=== PATIENT | male | born 1950 | race Caucasian/White ===

== ENCOUNTER 2018-05-08 06:55 | Day surgery (SDC) | payer MEDICARE ==
[~2018-05-08] VITALS: Ht 180.3 cm; Wt 91.6 kg
[~2018-05-08 06:55] MED LIST: AMOXICILLIN500 MG PO; ASPIR 8181 MG PO; LISINOPRIL-HCT1 EACH PO; MULTIVITAMINS1 EAC8 PO; NORCO 5-325 TA1 EACH PO; VITAMIN C1000 MG PO; XALATAN2.5 ML OU; ZOFRAN ODT4 MG SL
--- NOTE | 2018-05-08 09:09 | NUR ---
05/08/18 0909 Sheets,Vannesa 9837 PT ARRIVED TO PACU ON RA AND DROWSY TALKING TO RN, PT REPORTS THE NEED TO VOID, PT EDUCATION GIVEN ON MEDICATION IN BLADDER AND TRUNING PLAN. PT DENIES PAIN AND NAUSEA. PT REPORT THAT HIS FEET ARE NUMB AND UNABLE TO MOVE THEM. EDUCATION GIVEN ON SPINAL, SPINAL LEVEL L1.
--- NOTE | 2018-05-08 09:34 | NUR ---
ICED WATER GIVEN. CALL LIGHT W/IN REACH. DR BLEDSOE IN SPEAKING WITH PATIENT AND FAMILY.
--- NOTE | 2018-05-08 09:58 | NUR ---
LE 0935: PATIENT TURNS TO HIS BELLY WITH ASSIST FROM THIS RN POSITIONING LEGS. PATIENT TOLERATES THAT WELL. 0955: PATIENT TURNS TO HIS LEFT SIDE WITH ASSIST FROM THIS RN POSITIONING LEGS. PATIENT TOLERATES THAT WELL.
--- NOTE | 2018-05-08 10:39 | NUR ---
LE 1020: PT'S NIETO CATHETER IS UNPLUGGED AND BLADDER IS DRAINED FOR 325ML'S OF CLEAR REDDISH URINE. THE NIETO BALLOON HAS 13CC'S OF NS REMOVED. THE NIETO IS REMOVED, THERE IS SANGUINOUS DRAINAGE FROM THE PENIS NOTED. PT IS EDUCATED THAT SOME DRAINAGE WILL BE NORMAL. A BRET'S IS PUT UNDER THE PT. PT IS ALSO EDUCATED THAT IT WOULD BE BEST IF HE COULD WAIT LONG TOLERATED BEFORE GOING TO THE BATHROOM FOR A VOIDING TRAIL. PT REPORTS THAT HE HAS FEELING IN HIS LEGS AGAIN AND IS ABLE TO WIGGLE HIS TOES. CALL LIGHT IS WITHIN REACH. IS AT THE BEDSIDE, SHE IS LEAVING TO TAKE CARE OF THE DOG AND TAKE RX TO THE PHARMACY AND WILL RETURN IN APPROXIMATELY AN HOUR. WILL CONTINUE TO MONITOR PT.
--- NOTE | 2018-05-08 11:35 | NUR ---
PT INDICATES THAT HE WOULD LIKE TO GET UP AND TRY TO USE THE RESTROOM.
--- NOTE | 2018-05-08 11:48 | NUR ---
PT IS ASSISTED UP OOB WITH STANDBY ASSIST BY 2 RN'S. HE IS STABLE ON HIS FEET, DENIES ANY LIGHTHEADEDNESS, DIZZINESS, OR NAUSEA. HE IS UNABLE TO VOID MORE THAN 10CC'S OF BLOODY URINE. HE WALKS BACK TO HIS ROOM AND FINISHES HIS WATER AND STATES THAT HE WOULD LIKE TO TRY AGAIN. HE IS GIVEN MORE WATER. WILL CONTINUE TO MONITOR.
--- NOTE | 2018-05-08 11:52 | NUR ---
PT IS ABLE TO VOID APPROXIMATELY 25CC'S OF BLOODY URINE HIS 2ND TRIP TO THE BATHROOM. HE IS ENCOURAGED TO WALK TO THE DEPARTMENT HALLS TO HELP GET THINGS FLOWING.
--- NOTE | 2018-05-08 12:26 | NUR ---
PT DENIES ANY PAIN OR DISCOMFORT AT THIS TIME. HE IS TRYING REALLY HARD TO URINATE A QS AMOUNT. HE IS ENCOURAGED TO HOLD IT LONG POSSIBLE BEFORE TRYING AGAIN. HE IS TOLD THAT THERE IS NO HURRY TO GET HIM OUT OF HERE, THAT THERE IS TIME. BUT THE PT IS REALLY WANTING TO GO HOME. WILL CONTINUE TO MONITOR.
--- NOTE | 2018-05-08 13:04 | OR ---
[facility] [address] [facility] [place] [address] Signed DATE OF OPERATION: 05/08/2018 SURGEON: Reji Bledsoe MD PREOPERATIVE DIAGNOSES: 1. Painless gross hematuria. 2. A 2 cm bladder mass detected on CAT scan. POSTOPERATIVE DIAGNOSES: 1. Painless gross hematuria. 2. A 2 cm bladder mass detected on CT scan. NAMES OF PROCEDURES: 1. Diagnostic cystoscopy. 2. Transurethral resection of bladder tumor-medium. 3. Intravesical instillation of mitomycin. 4. Urethral dilation using Preble sounds. ANESTHESIA: Spinal anesthetic with sedation. ESTIMATED BLOOD LOSS: 5 mL. COMPLICATIONS: None. SPECIMENS: 1. Fragments of bladder mass sent to pathology for evaluation. 2. Fragments of the base of the bladder mass sent to pathology for evaluation. DRAINS: A 22-Bhutanese Beltran catheter capped and taped to the patient's abdomen. INDICATIONS FOR PROCEDURE: Mr. Agrawal is a very pleasant 67-year-old gentleman who recently presented to my clinic with a recent history of 2-3 episodes of painless gross hematuria. He began his gross hematuria workup and in doing so, he underwent a contrasted CT scan, which revealed a 2 cm mass located on the left lateral wall of the patient's bladder. In lieu of undergoing diagnostic cystoscopy, I brought the patient back to discuss the results of Electronically Signed By: REJI BLEDSOE MD 05/08/18 1304 PATIENT NAME: ROBERTO CARLOS AGRAWAL [facility] [place] [facility] [place] DATE OF : 48 REPORT #: [id number] PHYSICIAN: REJI BLEDSOE MD PCP: AGUILA SOTO DO REPORT IS CONFIDENTIAL AND NOT TO BE RELEASED WITHOUT AUTHORIZATION [facility] [address] [place], [place] [address] Signed the CAT scan and made recommendation at that time for the patient to undergo transurethral resection of the bladder tumor. After a discussion of the risks and benefits of the procedure, the patient elected to undergo diagnostic cystoscopy with TURBT, medium, along with intravesical instillation of mitomycin. OPERATIVE FINDINGS: 1. On cystoscopy, there was no evidence of any suspicious masses or lesions other than the obvious 2 cm bladder mass located on the left lateral wall of bladder. The bilateral ureteral orifices are in their normal anatomic location. There is no evidence of any bladder stones or other debris or bladder wall trabeculation. 2. The patient's 2 cm bladder mass was resected in a stepwise fashion from the left lateral wall of the bladder without difficulty. Two separate specimens were obtained, one from the bladder mass is a hole, and the other specimen was obtained from the base of the tumor. 3. A total of 40 mg in 20 mL of mitomycin was then infused into the patient's bladder at the end of the procedure via a 22-Bhutanese two-way Beltran catheter. The catheter was then capped and then taped to his abdomen. He will now began the formal chemotherapy process or he will change sides q.20 minutes for a total of 80 minutes. At which time, the chemotherapy will be drained from his bladder and the catheter will be removed. 4. The patient's urethra was passively dilated using Preble sounds from 18-Bhutanese to 28-Bhutanese without difficulty. DESCRIPTION OF PROCEDURE: After informed consent obtained, the patient was taken back to the operating room. He was transferred from the [facility] to the operating room table, where spinal anesthesia was induced. The patient was then sedated and then placed in the dorsal lithotomy position and his genitalia were prepped and draped in a standard sterile fashion. The patient's urethra was then dilated using Preble sounds from 18-Bhutanese to 28-Bhutanese without difficulty. The 26-Bhutanese sheath was then passed into the patient's bladder using a visual obturator. I then inserted the resectoscope and performed a thorough cystoscopy. I visualized the mass located on the left lateral wall of the bladder, measuring around 2 cm in size. The mass did not have any associated calcification or any other abnormal appearance. Overall, it appeared papillary in nature. I then resected the mass using a bipolar loop without difficulty. Any bleeding that I encountered along the way was cauterized easily with the bipolar loop. Once I had resected the most of the visible tumor, the fragments of tumor were irrigated from his bladder and placed in a specimen cup. I then initiated resection of the base of the bladder tumor and the hopes of getting fragments of detrusor muscle for pathologic evaluation. These fragments were sent in a separate specimen cup to pathology for evaluation. The tumor base was then cauterized using the bipolar loop without difficulty to obtain hemostasis. Once adequate hemostasis was obtained, the patient's bladder was then irrigated thoroughly with the tumor one more time to be sure there were no remaining fragments within the Electronically Signed By: REJI BLEDSOE MD 05/08/18 1304 PATIENT NAME: ROBERTO CARLOS AGRAWAL OPERATIVE REPORT DATE OF : 48 REPORT #: [id number] PHYSICIAN: REJI BLEDSOE MD PCP: AGUILA SOTO DO REPORT IS CONFIDENTIAL AND NOT TO BE RELEASED WITHOUT AUTHORIZATION [address] [address] Signed bladder. The resectoscope was then removed and a 22-Bhutanese two-way Beltran catheter was inserted into the patient's bladder. Approximately 15 mL of water was infused into the balloon of the Beltran catheter. The catheter was then drained completely of the saline. A syringe was then used to instill the mitomycin into the patient's bladder using indwelling Beltran catheter. The catheter was then capped and then taped to the patient's abdomen. The procedure was then terminated. The patient tolerated the procedure well without any complication. He will now be transferred to the postanesthesia care unit in stable condition. DISPOSITION: I discussed the details of today's procedure with the patient and his family and answered all of his questions. His catheter will be removed and he will begin a voiding trial as soon as he finishes his intravesical mitomycin chemotherapy. He understands he must void on his own prior to discharge. He will be sent home today with [place] 5/325 #20 as needed for pain along with Ditropan as needed for bladder spasms. He was also given a prescription for Levaquin 500 p.o. daily for a total of 7 days. I told him, I will contact him with the results of the pathology. Otherwise, he will return to clinic in 1 month for his first postoperative evaluation. MD RAMANDEEP Nassar/BERNIE /[id number] Copies: ~ Electronically Signed By: REJI BLEDSOE MD 05/08/18 1304 PATIENT NAME: ROBERTO CARLOS AGRAWAL [facility] REPORT DATE OF : 48 REPORT #: [id number] PHYSICIAN: REJI BLEDSOE MD PCP: AGUILA SOTO DO REPORT IS CONFIDENTIAL AND NOT TO BE RELEASED WITHOUT AUTHORIZATION
== END 2018-05-08 13:05 | disposition home or self-care (01) ==
LOC: DS 06:55 → OPS 06:55
PROVIDERS: Urology
PROC: 0TBB8ZZ Excision of Bladder, Via Natural or Artificial Opening Endoscopic (ICD-10-PCS; principal; 2018-05-08 08:15)
PROC: 3E0M705 Introduction of Other Antineoplastic into Peritoneal Cavity, Via Natural or Artificial Opening (ICD-10-PCS; 2018-05-08 08:15)
DX: C67.9 Malignant neoplasm of bladder, unspecified (principal); I10 Essential (primary) hypertension; F17.210 Nicotine dependence, cigarettes, uncomplicated; Z79.82 Long term (current) use of aspirin; Z79.899 Other long term (current) drug therapy
CPT/HCPCS: 00912; 88305; 88307; J0696; J2250; J2704; J3010; J7120; J9280

== ENCOUNTER 2020-10-14 12:12 | Emergency (ER) | payer MEDICARE, BC ==
[~2020-10-14] VITALS: Ht 177.8 cm; Wt 93.0 kg
[~2020-10-14 12:12] MED LIST changes: +FLOMAX0.4 MG PO; +LOPRESSOR HCT1 EAC1 PO
[2020-10-14] MEDS ORDERED: HYDROCODON-ACE1 EA10 PO (13:49)
[2020-10-14] MEDS ORDERED: ZOFRAN4 MG PO (13:49)
== END 2020-10-14 14:28 | disposition home or self-care (01) ==
LOC: ED 12:12
DX: N13.2 Hydronephrosis with renal and ureteral calculous obstruction (principal); Z85.828 Personal history of other malignant neoplasm of skin; Z85.51 Personal history of malignant neoplasm of bladder; F17.200 Nicotine dependence, unspecified, uncomplicated; Z79.899 Other long term (current) drug therapy
CPT/HCPCS: 74176; 80053; 81001; 83690; 85025; 96374; 99284-25; J1885; J7030

== ENCOUNTER 2024-11-04 13:58 | Emergency (ER) | payer MEDICARE, BC ==
[~2024-11-04] VITALS: Ht 177.8 cm; Wt 100.4 kg
[~2024-11-04 13:58] MED LIST changes: +AMLODIPINE BESYL5 MG PO; +DICLOFENAC SODI75 MG PO; +GABAPENTIN300 MG PO; +HYDROCODON-ACE1 EA10 PO; +METOPROLOL SUC100 MG PO; +OXYCODONE HCL5 MG PO; +SENNA LAX8.6 MG PO; +XARELTO10 MG PO; +ZOFRAN4 MG PO
[2024-11-04] MEDS ORDERED: KETOROLAC TROMETHAMINE 15 MG/ML VIAL IV ONE (14:15)
[2024-11-04] MEDS ORDERED: SODIUM CHLORIDE 0.9% 1,000 ML IV ONE (14:15)
[2024-11-04 14:25] LABS: BASOPHILS 0.6 % (0.2-1.2); EOSINOPHILS 2.4 % (0.8-7.0); LYMPHOCYTES 17.7 % (21.8-53.1); MCH 32.5 PG (25.7-32.2); MCHC 33.3 g/dL (32.3-36.5); MCV 97.5 fL (79.0-92.2); MONOCYTES 11.2 % (5.3-12.2); NEUTROPHILS 67.9 % (34.0-67.9); RBC 4.83 M/uL (4.63-6.08)
[2024-11-04 14:41] LABS: ALT (SGPT) 46.0 U/L (14-59); AST (SGOT) 23.0 U/L (15-37); GLOMERULAR FILTRATION RATE,EST 66.0 mL/min (>60); PROTEIN, TOTAL 7.4 g/dL (6.4-8.2); UREA NITROGEN 32.0 mg/dL (7-18)
[2024-11-04 15:25] LABS: BLOOD/HGB, URINE LARGE (Negative); KETONE, URINE NEGATIVE (Negative); LEUK ESTERASE, URINE NEGATIVE (negative); NITRITE, URINE NEGATIVE (negative)
[2024-11-04] MEDS ORDERED: HYDROCODONE BIT/ACETAMINOPHEN 5/325 MG 1 TAB HOME.PACK PO ONE (15:30)
[2024-11-04 15:31] LABS: EPITHELIAL CELLS, URINE SQUAMOUS 1+ /lpf (0-1+)
[2024-11-04 15:33] LABS: CASTS, URINE NONE SEEN \\lpf; CRYSTALS, URINE NONE SEEN (0-1+); REFLEX CULTURE, URINE No (No)
[2024-11-04 15:52] VITALS: BP 127/84
== END 2024-11-04 15:54 | disposition home or self-care (01) ==
LOC: ED 13:58
PROVIDERS: Emergency Medicine
DX: N13.2 Hydronephrosis with renal and ureteral calculous obstruction (principal); Z87.442 Personal history of urinary calculi; F17.200 Nicotine dependence, unspecified, uncomplicated; Z79.899 Other long term (current) drug therapy
CPT/HCPCS: 36415; 74176; 80053; 81001; 85025; 96374; 99284-25; A9270; J1885; J7030

== ENCOUNTER 2024-12-11 23:40 | Inpatient (IN) | payer MEDICARE, BC ==
[~2024-12-11] VITALS: Ht 177.8 cm; Wt 103.8 kg
[2024-12-12] VITALS (31 sets, daily range): BP systolic 85–124; BP diastolic 68–92
[2024-12-12 00:11] LABS: BASOPHILS 0.5 % (0.2-1.2); EOSINOPHILS 3.4 % (0.8-7.0); LYMPHOCYTES 30.4 % (21.8-53.1); MCH 33.3 PG (25.7-32.2); MCHC 33.9 g/dL (32.3-36.5); MCV 98.5 fL (79.0-92.2); MONOCYTES 11.0 % (5.3-12.2); NEUTROPHILS 54.5 % (34.0-67.9); RBC 4.53 M/uL (4.63-6.08)
[2024-12-12 00:14] LABS: INR 1.05 (0.80-1.30); PROTIME 13.3 Sec (11.2-14.2)
[2024-12-12] MEDS ORDERED: CALCIUM GLUCONATE 1,000 MG/10 ML VIAL IV ONE (00:15)
[2024-12-12] MEDS ORDERED: SODIUM CHLORIDE 0.9% 500 ML IV PRN ×2 (00:15→15:30)
[2024-12-12 00:23] LABS: CORONAVIRUS COVID-19 AG NEGATIVE (NEGATIVE)
[2024-12-12 00:26] LABS: ALT (SGPT) 203.0 U/L (14-59); AST (SGOT) 74.0 U/L (15-37); GLOMERULAR FILTRATION RATE,EST 52.0 mL/min (>60); PROTEIN, TOTAL 6.7 g/dL (6.4-8.2); UREA NITROGEN 58.0 mg/dL (7-18)
[2024-12-12] MEDS ORDERED: ACETAMINOPHEN 325 MG TAB PO PRN (02:15)
[2024-12-12] MEDS ORDERED: APIXABAN 5 MG TAB PO ONE (02:15)
--- NOTE | 2024-12-12 03:38 | NUR ---
PT ARRIVEDD ADDMITTED AND STARTED NS BOLUS DUE TO DECREASEDD BP. UNABLE TO START CARDDIZEM GTT DUE TO DECREASED BP. PT ON 2 L'S NC WITH A SPO2 97%. HEART RATE RUNNNING BETWEEN 120'S TO 130'S. BP LESS THAN 100SBP.
--- NOTE | 2024-12-12 04:03 | NUR ---
STARTED CARDIZEM GTT AT THIS TIME AT 2.5 THEN INCREASED TO 5MG/HR. FOR A HEART RATE OF 133'S. BP 102/73 (81) AFTER 500ML NS BOLUS. VS Q 15MINUTES.
--- NOTE | 2024-12-12 04:08 | NUR ---
STARTED CARDIZEM GTT AT 04:00 AFTER 500MLS BOLUS INFUSED. SBP 102/73 (81). HEART RATE 130'S DRIP RUNNING AT 5MG/HR AT THIS TIME.
[2024-12-12 05:25] LABS: BASOPHILS 0.8 % (0.2-1.2); EOSINOPHILS 2.6 % (0.8-7.0); LYMPHOCYTES 26.8 % (21.8-53.1); MCH 33.3 PG (25.7-32.2); MCHC 33.3 g/dL (32.3-36.5); MCV 99.8 fL (79.0-92.2); MONOCYTES 10.3 % (5.3-12.2); NEUTROPHILS 59.2 % (34.0-67.9); RBC 4.09 M/uL (4.63-6.08)
[2024-12-12 05:38] LABS: ALT (SGPT) 186.0 U/L (14-59); AST (SGOT) 61.0 U/L (15-37); GLOMERULAR FILTRATION RATE,EST 58.0 mL/min (>60); PROTEIN, TOTAL 6.1 g/dL (6.4-8.2); UREA NITROGEN 53.0 mg/dL (7-18)
[2024-12-12] MEDS ORDERED: METOPROLOL TARTRATE 5 MG/5 ML VIAL ONE (06:34)
--- NOTE | 2024-12-12 06:43 | NUR ---
DR CABAN AT BEDSIDE LOPRESSOR 5MG IVP GIVEN TO SEE IF HR WOULD COME DOWN. NOT RESULTS. CARDIZEM GTT AT 10MG/HR
[2024-12-12] MEDS ORDERED: METOPROLOL TARTRATE 5 MG/5 ML VIAL IV ONE (06:45)
--- NOTE | 2024-12-12 06:53 | NUR ---
VS Q 15 MINS SEE PAPER IN HARD CHART.
[2024-12-12] MEDS ORDERED: DIGOXIN 500 MCG/2 ML AMP IV ONE (07:00)
--- NOTE | 2024-12-12 07:04 | NUR ---
DIGOXIN 500MCG GIVEN AT THIS TIME. DR CABAN AT THE BEDSIDE. ALL QUESTIONS ANSWERED.
--- NOTE | 2024-12-12 08:06 | NUR ---
pt denies pain or sx, hr 125-130. call light in reach, breakfast to pt.
[2024-12-12] MEDS ORDERED: APIXABAN 5 MG TAB PO SCH ×2 (09:00→21:45)
--- NOTE | 2024-12-12 09:50 | NUR ---
call to chauncey in clinic for cardiac medical records. pt resting. call light in reach- hr 138.
--- NOTE | 2024-12-12 10:35 | NUR ---
increase cardizem to [address] segovia who is watching the monitor at this time in dept. pt denies any sob or pain, watching tv in bed with call light in reach. dr bazzi vo to charge manager emily to change drip to amiodorone drip no loading dose.
[2024-12-12] MEDS ORDERED: AMIODARONE/DEXTROSE 200 ML IV ONE ×2 (10:45→16:36)
--- NOTE | 2024-12-12 10:52 | NUR ---
beginning titration off of dilt and beginning amiodarone. dilt titrated down to 10mg/hr
--- NOTE | 2024-12-12 11:16 | NUR ---
CALL TO DR CABAN - UPDATE ON VITALS - AMIODORONE FUSING - HR 135, PT DENIES NEEDS. [facility] RECORD EF 60% FROM [address] CABAN. THIS RN ORDERED AND CALLED XRAY FOR NEW ECHO.
--- NOTE | 2024-12-12 11:21 | NUR ---
PT NOT AVAILABLE FOR VISIT. PROVIDED PRAYER.
--- NOTE | 2024-12-12 11:41 | NUR ---
PRINTED EDUCATION GIVEN AND REVIEWEDD WITH PT ON AFIB.
--- NOTE | 2024-12-12 12:18 | NUR ---
stopped cardizem drip hr 138 and pt on amiodorone drip - tollerated lunch 100% denies needs watching tv.
--- NOTE | 2024-12-12 13:07 | NUR ---
DR CABAN REQUESTED THAT DILT BE RESTARTED ALONG WITH THE AMIODARONE. RESTARTED AT 5.
--- NOTE | 2024-12-12 13:39 | NUR ---
PATIENT ALERT IN BED. STATES HE LIVES WITH SPOUSE IN SINGLE LEVEL HOUSE. HAS A SINGLE STEP TO GET INSIDE. STATES HE DOES NOT USE DME BUT HAS 2 WALKERS, WHEELCHAIR AND SHOWER CHAIR AVAILABLE DUE TO 'S PREVIOUS SURGERIES. STATES HE DRIVES AT [employer]. HE HAS NO FINANCIAL HARDSHIP. THEY ARE ABLE TO AFFORD UTILITIES, FOOD AND MEDICATIONS WITHOUT DIFFICULTY. STATES HE WAS NOT PLANNING ON BEING IN THE HOSPITAL HE HAD THING ON HIS AGENDA THAT HE NEEDED TO TAKE CARE OF. HE IS RESTLESS AND LAUGHS NERVOUSLY MULTIPLE TIMES DURING CONVERSTAION. QUESTIONS REGARDING HEARTRATE ANSWERED. PLANS TO RETURN HOME WHEN MEDICALLY READY.
--- NOTE | 2024-12-12 14:04 | NUR ---
UR CLINICAL REVIEW: 2 MN FOR VERSALUS-PER CIVIL STRUCTURAL DESIGNER MEET INPT CRITERIA FOR PE/AFIB WITH RVR WITH NEED FOR DILTIAZEM DRIP MEDICARE INPT 12/12/24 @ 1403 ORDER MATCHES REG NO AUTH REQUIRED PER MEDICARE GUIDELINES DISCHARGE TO HOME WHEN STABLE
--- NOTE | 2024-12-12 14:17 | NUR ---
DILT DRIP AT 15 MG/HR. DR CABAN AT BEDSIDE FOR EKG - PT DENIES SX. HR IS 135-140. PT RESTING. TO ROOM.
--- NOTE | 2024-12-12 15:09 | NUR ---
dr segovia in room with pt and , hr 129, 2 iv drips via pump see emar. printed education to pt on eliquis and a fib.
--- NOTE | 2024-12-12 15:13 | NUR ---
500 ml bolus started per v/o dr segovia.
--- NOTE | 2024-12-12 16:02 | EKG ---
[facility] [address] [facility] [place] [address] Signed Atrial fibrillation with rapid ventricular response Left axis deviation Incomplete right bundle branch block ST \T\ T wave abnormality, consider anterior ischemia Abnormal ECG When compared with ECG of 07-APR-2021 09:14, Atrial fibrillation has replaced Sinus rhythm Vent. rate has increased BY 79 BPM Incomplete right bundle branch block is now present Confirmed by JASWINDER CABAN MD ([id number]) on 12/12/2024 4:02:37 PM Electronically Signed By: JASWINDER CABAN 12/12/24 1602 PATIENT NAME: ROBERTO CARLOS AGRAWAL [facility] [place] Electrocardiogram DATE OF : 48 PHYSICIAN: JASWINDER CABAN REPORT #: [id number] REPORT IS CONFIDENTIAL AND NOT TO BE RELEASED WITHOUT AUTHORIZATION
--- NOTE | 2024-12-12 16:17 | NUR ---
dr segovia at bedside with pt, review vitals and meds - no changes. hr 140, bp 112/93. call light in reach.
--- NOTE | 2024-12-12 16:44 | NUR ---
HR 129 - NEW BAG OF AMIODARONE SCANNED AND CHECKED WITH JOSELITO IN PHARMACY.
--- NOTE | 2024-12-12 17:51 | NUR ---
medications reconciled
--- NOTE | 2024-12-12 19:40 | NUR ---
PATIENT RESTING IN BED. DENIES NEEDS AT THIS TIME. PATIENT AMIODARONE AND DILT GGT INFUSING PER MEDICATION FLOWSHEET, DOUBLE VERIFIED BY GEO MCCLURE. IV SITE INFUSING WNL. NO FURTHER NEEDS. CALL LIGHT IN REACH.
--- NOTE | 2024-12-12 20:06 | NUR ---
ROBERTO CARLOS STATED THAT HE HAD SMOKED FOR OVER 50 YEARS, BUT NO LONGER SMOKES. HE DOES NOT USE HOME OXYGEN, NIV, OR HOME RESPIRATORY MEDICATIONS.
[2024-12-12] MEDS ORDERED: ALBUTEROL SULFATE 0.083% 3 ML VIAL INH PRN (20:15)
--- NOTE | 2024-12-12 21:05 | NUR ---
PATIENT RESTING IN BED. DENIES SOB OR PAIN. PATIENT HAS NO CURRENT NEEDS AT THIS TIME. ASSESSMENT COMPLETE. CALL LIGHT IN REACH.
--- NOTE | 2024-12-12 21:45 | NUR ---
PHONE CALL TO DR CABAN REGARDING MEDICATION ELIQUIS 10MG PO. ASKED IF HE WANTED TO CONTIOUE THIS MEDICATION DUE TO IT DROPED OFF DUE TO THE ED DOCTOR ORERED IT WHEN PT WAS ADMITTED. DR CABNA WANTS THIS MEDICATION CONTIOUED 10MG BID. ORDERED ENTERED.
--- NOTE | 2024-12-12 22:30 | NUR ---
PATIENT OXYGEN SAT MID 80s s ON 2L NC. PATIENT O2 SAT INCREASED TO 4L NC. RT NOTIFIED.
--- NOTE | 2024-12-12 22:43 | NUR ---
ROBERTO CARLOS (AKA: BERNARD) WAS PLACED ON A SALTER HFNC OFF THE WALL IN ORDER TO MAINTAIN SPO2. HE IS CURRENTLY ON 5L.
--- NOTE | 2024-12-12 23:31 | NUR ---
INCREASED HIGH FLOW O2 TO 10'S LITERS VIA NC AT THIS TIME. SPO2 88 TO 90%. PT STATES HECTOR HE HAS NOT SLEPT WELL IN THE PAST FEW DAYS.
[2024-12-13] VITALS (32 sets, daily range): BP systolic 105–148; BP diastolic 52–131
--- NOTE | 2024-12-13 00:02 | NUR ---
PATIENT RESTING IN BED. DENIES SOB OR PAIN. ASSESSMENT COMPLETE. PATIENT ON 10L HIGH FLOW NC AT THIS TIME. PATIENT HAS NO FURTHER NEEDS. CALL LIGHT IN REACH.
--- NOTE | 2024-12-13 02:20 | NUR ---
PATIENT RESTING IN BED. RESPIRATIONS EVEN AND UNLABORED. DENIES NEEDS AT THIS TIME. CALL LIGHT IN REACH.
--- NOTE | 2024-12-13 02:51 | NUR ---
PT'S SPO2 DECREASED TO 84 %. PT WAS FOUND TO HAVE OXY MASK AND HIGH FLOW O2 OFF. rE APPLIED BOTH AND PT STATES "IT'S A BIT MUCH WITH ALL OF THIS ON". ONCE ALL BACK IN PLACE PT SPO2 INCREASED TO 94%.
--- NOTE | 2024-12-13 03:48 | NUR ---
NEW BAG IV MEDICATION INFUSING, DOUBLE VERIFIED BY SHAWN MCCLURE. PATIENT RESTING IN BED WITH EYES CLOSED. RESPIRATIONS EVEN AND UNLABORED. CALL LIGHT IN REACH.
[2024-12-13] MEDS ORDERED: AMIODARONE HCL 180 MG in SODIUM CHLORIDE 0.9% 96.4 ML IV ONE (04:36)
--- NOTE | 2024-12-13 05:00 | NUR ---
PATIENT RESTING IN BED. PATIENT REPOSITIONED IN BED. ASSESSMENT COMPLETE. FRESH COFFEE PROVIDED. PATIENT STATES THAT HE IS FEELING MORE SOB THEN NORMAL, BUT DENIES CHEST PAIN. PATIENT IS ON 5L HIGH FLOW NC AT THIS TIME. PATIENT DENIES FURTHER NEEDS. CALL LIGHT IN REACH.
[2024-12-13 05:25] LABS: BASOPHILS 0.6 % (0.2-1.2); EOSINOPHILS 3.1 % (0.8-7.0); LYMPHOCYTES 17.4 % (21.8-53.1); MCH 33.0 PG (25.7-32.2); MCHC 33.5 g/dL (32.3-36.5); MCV 98.5 fL (79.0-92.2); MONOCYTES 11.8 % (5.3-12.2); NEUTROPHILS 66.8 % (34.0-67.9); RBC 4.09 M/uL (4.63-6.08)
[2024-12-13 05:44] LABS: ALT (SGPT) 166.0 U/L (14-59); AST (SGOT) 41.0 U/L (15-37); GLOMERULAR FILTRATION RATE,EST 77.0 mL/min (>60); PROTEIN, TOTAL 6.4 g/dL (6.4-8.2); UREA NITROGEN 34.0 mg/dL (7-18)
--- NOTE | 2024-12-13 05:53 | NUR ---
PT AWAKE SITTING UP IN BED WATCHING TV AT THIS TIME. GAVE PT FRESH CUP OF COFFEE.
--- NOTE | 2024-12-13 06:19 | NUR ---
DR CABAN INTO SEE PT ASK FORECLOSURE HOME INSPECTOR TO INCREASE DILT TO 20MG/HR AT THIS TIME. HEART RATE WAS 130 AND CURRENTLY VARIES FROM 1TEENS TO THE 130'S. BP HOLDING AT 110/87 (96).
--- NOTE | 2024-12-13 06:46 | NUR ---
VITALS HAVE BEEN OBTAINED Q15 MINS THIS SHIFT, SEE PAPER IN CHART.
--- NOTE | 2024-12-13 07:30 | NUR ---
report from Ruslan, pt sets off bed alarm - somewhat confused when RN enters room - pt states he forgot where he was and wants to get up to chair. rn assisted pt to stand - unsteady - line managment and pt pivot trsf to chair. repositioned pt with lines and fresh linen, bed linen changed - pt given warm wash cloth and he washes face- o2 5L hfnc sats 95%, pt sob with exertion but denies pain. reports thats what he needed to be up in chair. call light in reach. no edema noted. pt comfortable in ch with tv per his report. breakfast to pt. iv fusing with cardizem at 20 and amiodorone drip both in left arm iv x2 wnl.
[2024-12-13] MEDS ORDERED: AMIODARONE HCL 200 MG TAB PO SCH ×3 (09:00→21:00)
--- NOTE | 2024-12-13 09:45 | NUR ---
INTO SEE PATIENT. PATIENT TO GO HOME WITH WHEN MEDICALLY CLEARED FOR DISCHARGE. NO CM NEEDS AT THIS TIME.
--- NOTE | 2024-12-13 10:25 | EKG ---
[facility] [address] [facility] [place] [facility] [place] [address] Signed Atrial flutter with variable AV block Incomplete right bundle branch block Right ventricular hypertrophy with repolarization abnormality Lateral infarct , age undetermined Inferior infarct , age undetermined Abnormal ECG When compared with ECG of 11-DEC-2024 23:47, Significant changes have occurred Confirmed by JASWINDER CABAN MD ([id number]) on 12/13/2024 10:25:16 AM Electronically Signed By: JASWINDER CABAN 12/13/24 1025 PATIENT NAME: ROBERTO CARLOS AGRAWAL [facility] [place]cardiogram DATE OF : 48 PHYSICIAN: JASWINDER CABAN REPORT #: [id number] REPORT IS CONFIDENTIAL AND NOT TO BE RELEASED WITHOUT AUTHORIZATION
--- NOTE | 2024-12-13 11:43 | NUR ---
pt in chair - no distress - sob with exertion- rn asked pt to stand sats 90% 5l HFNC, hr 125-130 continues. call light in reach - all tele leads replaced, new o2 prob. pt denies needs.
--- NOTE | 2024-12-13 13:50 | NUR ---
pt call light answered - pt found in bed, he moved self from chair to bed with out using his call light and is sob and found holding his iv in his hand completly pulled out. new iv to r ac and left ac site covered with pressure. pt in bed with bed alarm and call light and educated that the need to call before he moves is for line assistance and safety. pt verbalizes understanding. watching tv hr 133 and cardizem drip fusing on pump.
--- NOTE | 2024-12-13 14:12 | NUR ---
PT AND IN ROOM ASKING QUESTIONS ABOUT OXYGEN AND BLOOD CLOTS - REVIEWED EDUCATION THAT WAS PRINTED. PT IS SOB WITH EXERTION, PT VOID 300 ML OF URINE IN URINAL.
--- NOTE | 2024-12-13 14:37 | NUR ---
VISITED DURING SPIRITUAL CARE ROUNDS. PT SITTING UP IN CHAIR EATING LUNCH, CONVERSANT, APPEARED TO BE IN OVERALL GOOD SPIRITS, EXPRESSED DESIRE TO GO HOME. CONTRACT GRAPHIC DESIGNER PROVIDED SUPPORTIVE PRESENCE, HOSPITALITY, PRAYER, FACILITATED INTERACTION WITH THERAPY ANIMAL. PT EXPRESSED GRATITUDE.
--- NOTE | 2024-12-13 14:45 | NUR ---
DR CABAN HERE REVIEW VITALS AND PT STATUS WITH THIS RN, AWARE OF SOB AND EXERTION- PULLING OUT IV/CONFUSED. DR ORDER NEW CT SCAN OF CHEST TO F/U PE/SOB WITH INCREASE OXYGEN TODAY.
--- NOTE | 2024-12-13 15:20 | NUR ---
1515 pt hr converted to SR HR 70-75, strip marked. pt denies needs. call light in reach.
[2024-12-13] MEDS ORDERED: DIGOXIN 250 MCG TAB PO SCH (15:35)
--- NOTE | 2024-12-13 15:38 | NUR ---
call to dr ayon to notify of pt conversion to sr, hr 75 and has been last 20 min. will be right over to assess pt and review recent orders.
--- NOTE | 2024-12-13 19:22 | NUR ---
discussed with charge aide and review vitals/tele - increase cardizem back to 10 on pump see flow sheet. pt denies needs, watching tv. call light in reach.
--- NOTE | 2024-12-13 19:47 | NUR ---
call to dr ayon to notify of rate change and cardizem at 20 on drip. he is aware and will come in.
--- NOTE | 2024-12-13 19:54 | NUR ---
PATIENT RESTING IN BED WITH EYES CLOSED. RESPIRATIONS EVEN AND UNLABORED. NO CURRENT NEEDS. CALL LIGHT IN REACH. BED ALARM ON.
[2024-12-13] MEDS ORDERED: MAGNESIUM SULFATE 2 GM/50 ML BAG IV ONE (20:15)
--- NOTE | 2024-12-13 20:39 | NUR ---
PATIENT RESTING IN BED. SCHEDULED MEDICATION ADMINISTERED. ASSESSMENT COMPLETE. BOTH IVs FLUSH WNL. PATIENT DENIES SOB OR CHEST PAIN. PATIENT EDUCATED TO CALL IS HE NEEDS ANYTHING. BED ALARM ON FOR SAFETY. PATIENT HAS NO FURTHER NEEDS AT THIS TIME. CALL LIGHT IN REACH.
--- NOTE | 2024-12-13 22:39 | NUR ---
PATIENT CALLED TO "SEE IF EVERYTHING WAS OKAY". PATIENT THOUGHT HE SAW OR SMELLED SMOKE. PATIENT REASSURED. PATIENT IS ORIENTED TO SELF AND SURROUNDINGS. PATIENT APPEARS SOB AND IS PATTING HIS CHEST. PATIENT DENIED PAIN OR FEELING SOB, STATING "I WOULDN'T SAY ITS THOSE THING". PATIENT Sp02 >90% ON 4L OXYMASK. HR 120-140; AFIB. BP WNL. RT CALLED TO DISCUSS AND DECIDED TO TRY PRN NEB TREATMENT. PATIENT THEN BEGAN REPORTING CHEST PAIN AND WANTING TO GET OUT OF BED. CALLED; ORDERS FOR TROPONIN LABS AND EKG RECEIVED. MD TO SEE PATIENT.
[2024-12-13] MEDS ORDERED: NITROGLYCERIN 0.4 MG SUBL SL PRN (23:00)
[2024-12-13] MEDS ORDERED: METOPROLOL TARTRATE 5 MG/5 ML VIAL IV PRN (23:00)
[2024-12-13] MEDS ORDERED: MORPHINE SULFATE 4 MG/ML VIAL IV PRN (23:00)
[2024-12-13] MEDS ORDERED: LACTATED RINGER'S 500 ML IV SCH (23:15)
--- NOTE | 2024-12-13 23:50 | NUR ---
2236 - RT TO ROOM. MAREN RN AND MICHAEL RN TO ROOM. EKG OBTAINED BY KATHARINA YOUNG. LAB IN ROOM TO OBTAIN BLOOD. PATIENT REPORTING SEVERE CHEST PAIN AT THIS TIME AND IS SITTING AT THE EDGE OF BED. 2250 - MD RIDLEY IN ROOM. 2315 - PATIENT REPORTING 9/10 CHEST PAIN. PER MD ORDERS 1 TAB NITRO ADMINISTERED. BLOOD PRESSURE SET TO Q5 MIN. PRN PAIN MEDICATION ADMINISTERED. PATIENT STILL REPORTS 7/10 CHEST PAIN, 5 MINS AFTER ADMINISTERING NITRO. SECOND TAB NITRO ADMINISTERED PER MD ORDERS. BP STABLE. HR REAMIANS 130-150'S 2330 - PATIENT SITTING AT EDGE OF BED, STRETCH BOX TENDER, MD RIDLEY, MAREN RN AND MICHAEL RN IN ROOM. PATIENT STILL REPORTING CHEST PAIN. MD ORDER TO ADMINISTER MORPHINE, TITRATING TO MAX DOSE. PATIENT TITRATED TO 15L OXY MASK AT THIS TIME. 2340 - PATIENT OFF FLOOR TO CT WITH MAREN RN AND MICHAEL RN. 2355 - PATIENT BACK TO FLOOR FROM CT. PATIENT ON 15L OXY MASK. PATIENT RESTING IN BED. MD RIDLEY REMAINS ON FLOOR. PATIENT BED ALARM ON. PATIENT STATES THAT HIS PAIN IS GETTING BETTER. HR REAMAINS ELEVATED; 120-140'S. DILTIAZEM DRIP CONTINUES AT 20 MG/HR. IV SITE WNL.
[2024-12-14] VITALS (23 sets, daily range): BP systolic 88–145; BP diastolic 61–113
[2024-12-14] MEDS ORDERED: FUROSEMIDE 20 MG/2 ML VIAL IV ONE ×2 (00:45→06:45)
--- NOTE | 2024-12-14 01:11 | NUR ---
PATIENT RESTING IN BED. DENIES PAIN AT THIS TIME. PATIENT STILL ON 15 L OXYMASK AT THIS TIME. MEDICATION ADMINISTERED PER ORDER. PUREWICK PLACED AFTER PERICARE PROVIDED. PATIENT DENIES NEEDS. CALL LIGHT IN REACH. BED ALARM ON. PATIENT REPOSITIONED IN BED.
[2024-12-14] MEDS ORDERED: METOPROLOL TARTRATE 5 MG/5 ML VIAL IV SCH (02:00)
--- NOTE | 2024-12-14 02:15 | NUR ---
PATIENTS BED ALARM, ALARMING. THIS RN TO ROOM. PATIENT STATES HE WAS "TRYING TO GET OUT OF BED SO I COULD PEE". THIS RN HELPED PATIENT BACK TO BED. PATIENT REPORTS 5/10 PAIN NEAR HIS CHEST, PRN PAIN MEDICATION ADMINSITERED. SCHEDULED MEDICATION ADMINISTERED. PATIENT DENIES FURTHER NEEDS AND WAS EDUCATED TO CALL IF HE NEEDS ANYTHING. CALL LIGHT IN REACH. BED ALARM ON.
--- NOTE | 2024-12-14 03:41 | NUR ---
PATIENT RESTING IN BED. VSS. PATIENT O2 SAT 95% ON 15L OXYMASK. BED ALARM ON. CALL LIGHT IN REACH.
[2024-12-14 05:29] LABS: BASOPHILS 0.2 % (0.2-1.2); EOSINOPHILS 0.2 % (0.8-7.0); LYMPHOCYTES 5.2 % (21.8-53.1); MCH 33.0 PG (25.7-32.2); MCHC 33.4 g/dL (32.3-36.5); MCV 98.7 fL (79.0-92.2); MONOCYTES 13.0 % (5.3-12.2); NEUTROPHILS 81.0 % (34.0-67.9); RBC 3.79 M/uL (4.63-6.08)
--- NOTE | 2024-12-14 05:30 | NUR ---
PATIENT DIFFICULT TO WAKE UP FOR LAB DRAW. PATIENT ABLE TO WAKE UP AND STATRE HIS NAME AND BUT DOES NOT KNOW WHERE HE IS OR THE YEAR. MICHAEL MCCLURE, UPDATED MD RIDLEY VIA TELEPHONE. NEW ORDERS RECEIVED. VERIFIED USING REPEAT BACK METHOD.
[2024-12-14 05:47] LABS: ALT (SGPT) 121.0 U/L (14-59); AST (SGOT) 28.0 U/L (15-37); GLOMERULAR FILTRATION RATE,EST 70.0 mL/min (>60); PROTEIN, TOTAL 6.2 g/dL (6.4-8.2); UREA NITROGEN 23.0 mg/dL (7-18)
[2024-12-14 05:52] LABS: BASE EXCESS, BLOOD GAS 1.7 mmol/L (-2-2); HCO3, BLOOD GAS 27.6 mmol/L (22-26); O2 SATURATION, BLOOD GAS 94.0 % (95.0-100.0); PCO2, BLOOD GAS 49.1 mmHg (35-45); PH, BLOOD GAS 7.36 (7.35-7.45); PO2, BLOOD GAS 70 mmHg (80-100); TOTAL CO2, BLOOD GAS 29.1
[2024-12-14 05:53] LABS: OXYGEN RECEIVED, BLOOD GAS 15L
--- NOTE | 2024-12-14 06:43 | NUR ---
UPDATED ON PATIENT'S MENTAL STATUS AND LAB RESULTS.
--- NOTE | 2024-12-14 07:02 | NUR ---
PATIENT VS HAVE BEEN OBTAINED Q15 MIN DURING THIS SHIFT. VS PRINTED AND PLACED IN PATIENT CHART.
--- NOTE | 2024-12-14 08:00 | NUR ---
dr oden in room with this rn and pt, rn empties 300 ml or urine from male purewick canister on wall. advises dr that pt is not talking and acting the same as yesterday and rn is concerned as his swallow is difficult and he sputters trying to swallow. pt seems agitated, with garbled speech then clears for drs questions. he answers some incorrect orientation. pt does mini neuro exam with . and rn. moves all extremities, tounge is mid line, shrugs shoulders equal palms up, down, raises eye brows equal, smiles, swallow is still concerning to rn and pt denies wanting anything - his o2 sats are low and somewhat sob with talking. call light in reach - rn asks metal extrusion supervisor for sitter for bipap.
--- NOTE | 2024-12-14 08:06 | NUR ---
BED 10 l OXY MASK 94%, HR 149, ABD DISTENDED, BLE EDEMA PITTING IN FEET, PT SPEECH IS MORE GARBLED BUT PT REPORTS DRY MOUTH, PT REPORTS NO DRINKING AND LAST WAS 3 WEEKS AGO. MOUTH BREATHING WITH CRACKLES/WHEEZE IN LUNGS. BED ALARM ON. CALL LIGHT IN REACH.
--- NOTE | 2024-12-14 09:10 | NUR ---
PT AGREEABLE TO BIPAP, PLACED BY AKHIL YOUNG - 03/16 SETTINGS. PT HAS SITTER AND DOOR OPEN. PT IS TALKING AND SWALLOWING WITH DIFFICULTY BEFORE THIS SO RN REQUESTED SITTER AND DOOR OPEN ALL THE WAY. PT WITH HOB UP HAS FACE MASK ON, AND FALLS EASILY TO SLEEP. RESP 16, AND AFTER OBSERVING PT FOR SOME TIME HR GOES DOWN TO 114-130, O2 SATS 92. PT LOOKS MORE RELAXED AND EASILY AWAKENS TO STIMULI. ORAL CARE DONE BEFORE MASK PLACED BY THIS RN, PT KEEPS MOUTH OPEN AT ALL TIMES AND IS VERY DRY - REPORTS THAT HE CAN INHALE THROUGH HIS NOSE BUT NOT EXHALE- HE REPORTS THIS TO RN AND RT. CONTINUES TO MOUTH BREATH WITH BIPAP MASK ON AND FALLS BACK TO SLEEP. SITTER ABIDA AT SIDE.
[2024-12-14] MEDS ORDERED: IPRATROPIUM BROMIDE 2.5 ML VIAL INH ONE (09:15)
[2024-12-14] MEDS ORDERED: IPRATROPIUM BROMIDE 2.5 ML VIAL ONE (09:17)
[2024-12-14] MEDS ORDERED: METOPROLOL SUCCINATE 100 MG TABCR PO SCH (09:24)
[2024-12-14] MEDS ORDERED: TAMSULOSIN HCL 0.4 MG CAP PO SCH (09:25)
--- NOTE | 2024-12-14 10:00 | NUR ---
PT CONTINUES TO HAVE BIPAP ON AND HR IS 120-130 RESP RATE 14, SATS 93% AND PT RESTING WITH SITTER AT BEDSIDE. MALE PUREWICK TO WALL SUCTION AND DRAINING FEMI URINE AFTER LASIX.
--- NOTE | 2024-12-14 10:21 | NUR ---
DISCHARGE REVIEW: CONTINUES IN AFIB RVR, HEARTRATES REMAIN UP TO 150 WITH NEED FOR IV MED MANAGEMENT. CARDIAC MONITORING. IV DIURETICS, OXYGEN NOT USED AT BASELINE. PLAN TO RETURN TO HOME WHEN MEDICALLY READY. POTENTIAL NEED TO TRANSFER FOR CARDIOLOGY IF UNABLE TO IMPROVE HEARTRATE ADD: 12/15-12/16/24
--- NOTE | 2024-12-14 11:19 | NUR ---
INTO SEE PATIENT. PATIENT ON BIPAP AND PATIENT CYBER SECURITY. PATIENT SLEEPING. PRIMARY NURSE REQUEST PATIENT TO SLEEP.
--- NOTE | 2024-12-14 12:15 | NUR ---
pt was able to wear bipap until now, (3 hours) pt continues to have poor memory and speech that is changed from yesterday, more garbled and at times flight of words. pt does not know how he got here on admit, admits he is not sure what is happening, he previously could tell me about his er visit and health history yesterday. he is confused, yet sharp with some information. pt given ice chip - he is swallowing poorly and takes lots of encouragement to swallow liquid with a cough. clears well. oxygen on oxymask 10L sats 93%, voids using the male purewick. abd. distended.
--- NOTE | 2024-12-14 13:05 | NUR ---
rn and in room for assessment, hr continues in a fib hr 109, pt on 12l oxy mask - rn expresses concern for change in mental status. pt declines lunch.
--- NOTE | 2024-12-14 13:10 | NUR ---
pt has bipap off, discussing pt status, sleep apnea and altered mental status and then he is talking clear and matter a fact. dr concerned and asked rn to call code stroke to ct and mri. bs checked wnl.
--- NOTE | 2024-12-14 13:12 | NUR ---
RESPONDED TO STROKE TEAM ACTIVATION. PT NOT AVAILABLE FOR VISIT, NO FAMILY PRESENT. PROVIDED PRAYER.
[2024-12-14] MEDS ORDERED: LORazepam 2 MG/ML VIAL IV SCH (13:15)
[2024-12-14] MEDS ORDERED: LORazepam 2 MG/ML VIAL IV ONE (13:15)
--- NOTE | 2024-12-14 13:15 | NUR ---
MARKETING TECHNOLOGY SPECIALIST CHECKED BLOODSUGAR ON PATIENT. BLOODSUGAR WAS 124. KAMI CUEVAS AND KAMI GUARDADO NOTIFIED.
--- NOTE | 2024-12-14 13:15 | NUR ---
dr in room pt to ct scan followed by mri with this rn and dr - pt symptoms, slurred speech, altered mental status, and change in swallow. poor memory and acting very diffrent today then yesterday. pt to xray dept on oxygen via bed.
[2024-12-14] MEDS ORDERED: IPRATROPIUM BROMIDE 2.5 ML VIAL INH SCH (14:00)
--- NOTE | 2024-12-14 14:30 | NUR ---
in room with pt, , rn and rt for assessment and discussion. post xray - HR 104, bp 94/82 (88) pt getting neb tx right now. call light in reach.
[2024-12-14] MEDS ORDERED: LORazepam 2 MG/ML VIAL IV PRN (16:30)
--- NOTE | 2024-12-14 16:30 | NUR ---
pt is restless not wanting to wear bipap - rose grading supervisor susi in to assist pt, he is not cooperative and does not understand the benefit after he trys to explain. call to and 1mg iv ativan given to pt see emar - then pt is agreeable to wear bipap again. sitter at side and pt sleeps with mask on and mouth wide open at all times.
--- NOTE | 2024-12-14 18:54 | NUR ---
pt restless with bipap rn removed it and placed on hfnc - pt garbled speech, inappropriate speech, pt barked at this rn when i handed him a wash cloth to wet his mouth and wash face. this rn - notified special agent in charge audelia to come in and help assess this pt as yesterday his mental status and behavior was normal and much diffrent. pt does not know where he is, does not know day and or time, does not know the names of his 3 dogs readily - slowly he is able to recal them over a min -2. He is garbled, then clear speach - he is suspicious of oral care supplies given to him. this am this rn asked if he drank etoh - he reported not for a month or so - no I don't drink. this evening on the phone his said he drinks every weekend- so his last drink would likely be 5 days ago? She is not sure if he drinks more - they are retired and home together but she doesn't think so. at this time he is resting in the bed, hr 114, bp 103/73 and o2 95% on hfnc 10L. pt thinks we are in [place], and when asked how he got here he states well wouldnt you like to know!. He compensates and answers questions strange and open ended - such as above. warm blanket given and he says that feels pretty good, but when handed a tooth brush - he didn't know what it was or why i was giving it to him? pt continues to have bed alarm, call light and sitter with him. hob up high awake and watching tv. this rn reports to charge and that he is acting very diffrent from yesterday when he was independent up in chair eating meals and haveing normal conversations with this rn. today it is like he never saw me before - yesterday we had conversation and mutual aquantence after a few trys he was able to remember today but he had run around sentances and speech before he answered the correct name. he just is not the same as yesterday. rn to give report to pet sitter - and deng winchestergovernment operations consultant is here tomorrow so that is also one of the reasons I asked her in for mini neuro exam. considered ciwa - but pt reported that he does not drink.
--- NOTE | 2024-12-14 19:45 | NUR ---
SHIFT REPORT RECEIVED. PATIENT RESTING IN BED. HIGH FLOW NC IN PLACE. SITTER AT BEDSIDE. PATIENT IS RESTLESS AND CONFUSED. ORIENTED TO SELF BUT NOT SURROUNDINGS OR FOLLOWING INSTRUCTIONS. VS STABLE.
--- NOTE | 2024-12-14 20:15 | NUR ---
PATIENT PLACED ON CPAP BY RT. PATIENT WAS RESTLESS AND ATTEMPTING TO REMOVE MASK SEVERAL TIMES. AFTER SEVERAL ATTEMPTS BY PAROLE BOARD MEMBER TO REASSURE THE PATIENT HE IS NOW RESTING WITH EYES CLOSED. VS STABLE.
--- NOTE | 2024-12-14 21:00 | NUR ---
DISCUSSED PATIENT'S MENTAL STATUS AND AGITATION WITH . PLAN MADE TO USE PRECEDEX TO MANAGE PATIENT AND ATTEMPT TO KEEP CPAP IN PLACE OVERNIGHT.
--- NOTE | 2024-12-14 22:00 | NUR ---
PATIENT AWAKE AND ATTEMPTING TO REMOVE THE MASK. PATIENT IS MORE AGITATED AND REMAINS CONFUSED ON WHERE HE IS AND WHY. CPAP REMOVED AND PLACED ON HIGH FLOW FOR PO MEDS. PATIENT TAKES MEDS AND SIPS OF WATER WITHOUT ISSUES. PATIENT IS ANGRY WITH STAFF AND SITUATION; REFUSING CPAP AT THIS TIME. ATTEMPTING TO REMOVE MONITOR AND IV SITES. PRN ATIVAN PROVIDED AT THIS TIME. AWAITING PRECEDEX APPROVAL BY [employer].
--- NOTE | 2024-12-14 22:30 | NUR ---
PATIENT MORE RESTFUL AT THIS TIME. AGREES TO WEAR CPAP FOR SHORT TERM. CPAP APPLIED AND ADJUSTED. PATIENT REQUIRED SEVERAL REMINDERS TO NOT REMOVE MASK. PRECEDEX STARTED AT LOW DOSE. IV SITE WNL. CARDIZEM INFUSING PER ORDER. TITRATED TO 1O MG/HR. HR 100-120; BP ADEQUATE. PATIENT HAS MALE PURE WIC IN PLACE; OUTPUT IS FEMI COLORED. 1:[address] FOR SAFETY[address]
--- NOTE | 2024-12-14 23:00 | NUR ---
PATIENT RESTING WITH EYES CLOSED. HOB AT 45 DEGREES. TOLERATING CPAP. VS STABLE. SITTER AT BEDSIDE.
[2024-12-15] VITALS (21 sets, daily range): BP systolic 93–122; BP diastolic 65–82
--- NOTE | 2024-12-15 | NUR ---
RASS -1; PATIENT APPEARS RESTFUL. TOLERATING CPAP. VS STABLE. HR 95-115; AFIB. SITTER AT BEDSIDE FOR SAFETY.
--- NOTE | 2024-12-15 01:31 | NUR ---
PATIENT REMAINS RESTFUL. OCCATIONALLY NEEDS REMINDED TO LEAVE CPAP IN PLACE. VS STABLE. SITTER AT BEDSIDE.
--- NOTE | 2024-12-15 03:30 | NUR ---
PATIENT RESTING IN BED. WAKES EASILY TO VOICE. RASS -1. VS STABLE. SITTER AT BEDSIDE.
--- NOTE | 2024-12-15 05:00 | NUR ---
PATIENT WAKES WHEN RN IN ROOM. CPAP REMOVED. PATIENT ABLE TO STATE HIS NAME. MOUTH IS DRY; OFFERED WATER. PATIENT UNABLE TO SUCK ON STRAW. OFFERED WATER WITH SPOON AND PATIENT HAD DIFFICULTY FIGURING OUT HOW TO SWALLOW. PATIENT EVENTUALLY DID SWALLOW AND DID NOT CHOKE OR COUGH. PATIENT UNSURE OR UNABLE TO ANSWER ANY QUESTIONS. CPAP BACK IN PLACE. VS STABLE.
[2024-12-15 05:17] LABS: BASOPHILS 0.6 % (0.2-1.2); EOSINOPHILS 1.2 % (0.8-7.0); LYMPHOCYTES 14.3 % (21.8-53.1); MCH 33.2 PG (25.7-32.2); MCHC 34.0 g/dL (32.3-36.5); MCV 97.6 fL (79.0-92.2); MONOCYTES 15.7 % (5.3-12.2); NEUTROPHILS 67.9 % (34.0-67.9); RBC 3.80 M/uL (4.63-6.08)
[2024-12-15 05:38] LABS: ALT (SGPT) 89.0 U/L (14-59); AST (SGOT) 22.0 U/L (15-37); GLOMERULAR FILTRATION RATE,EST 64.0 mL/min (>60); PROTEIN, TOTAL 6.1 g/dL (6.4-8.2); UREA NITROGEN 26.0 mg/dL (7-18)
--- NOTE | 2024-12-15 08:25 | NUR ---
REPORT RECEIVED FROM MICHAEL MCCLURE. PT IS RESTING IN BED WITH EYES CLOSED, RESP EVEN AND UNLABORED, RR 16, SPO2 95% ON 4L/HIGH FLOW CANNULA. PRECEDEX DRIP IS INFUSING AT 0.2MCG/KG/HR AND CARDIZEM DRIP IS INFUSING AT 10MG/HR.
[2024-12-15] MEDS ORDERED: FUROSEMIDE 20 MG/2 ML VIAL IV ONE (09:00)
--- NOTE | 2024-12-15 09:04 | NUR ---
DR RIDLEY IN TO SEE PT AND TALKE WITH AND SON.
--- NOTE | 2024-12-15 15:51 | NUR ---
PT AWAKE VISITING FAMILY. HR 100-110'S.
--- NOTE | 2024-12-15 18:50 | NUR ---
IN TO CHECK ON PT, RESTING HR IS NOW 110-120'S AFIB. FAMILY HAS BEEN AT BEDSIDE ALL AFTERNOON TALKING WITH PT, PT NOW LEAVING. PTS ATTENDS CHECKED, DOES HAVE SOME URINE LEAKAGE, HA CARE DONE SKIN LOOKS GOOD. PT STOOD WITH FWW, STEADY ON HIS FEET AND HR STEADY WELL. PT THEN BACK TO BED WITH BED ALARM ON.
--- NOTE | 2024-12-15 19:45 | NUR ---
SHIFT REPORT RECEIVED. PATIENT RESTING IN BED WATCHING TV. VS STABLE. CALL LIGHT IN REACH. BED ALARM ACTIVE.
--- NOTE | 2024-12-15 20:30 | NUR ---
PATIENT IS ALERT AND ORIENTED TO SELF AND SURROUNDINGS. DENIES GI UPSET OR PAIN. PATIENT TOLERATING 4L NC. LUNG SOUNDS ARE CLEAR. PATIENT IN A.FIB WITH RATE 110-130'S. IV SITE WNL; SL. PATIENT PROVIDED FRESH WATER. DENIES OTHER NEEDS. CALL LIGHT IN REACH. BED ALARM ON.
--- NOTE | 2024-12-15 22:19 | EKG ---
[facility] [address] [place] [address] Signed Atrial fibrillation with rapid ventricular response with premature ventricular or aberrantly conducted complexes Left axis deviation Incomplete right bundle branch block ST \T\ T wave abnormality, consider anterolateral ischemia Abnormal ECG When compared with ECG of 12-DEC-2024 14:04, Significant changes have occurred Confirmed by Rola Ridley MD () on 12/15/2024 10:19:09 PM Electronically Signed By: ROLA RIDLEY MD 12/15/24 2219 PATIENT NAME: ROBERTO CARLOS AGRAWAL Electrocardiogram DATE OF : 48 PHYSICIAN: ROLA RIDLEY MD REPORT #: [id number] REPORT IS CONFIDENTIAL AND NOT TO BE RELEASED WITHOUT AUTHORIZATION
--- NOTE | 2024-12-15 22:30 | NUR ---
DISCUSSED PATIENT'S HEART RATE WITH ; ORDERS PLACED TO ADD DIGOXIN.
[2024-12-15] MEDS ORDERED: DIGOXIN 125 MCG TAB PO ONE (22:45)
--- NOTE | 2024-12-15 23:04 | NUR ---
PATIENT PROVIDED MEDS. PATIENT WOKE EASILY AND FOLLOWS DIRECTIONS WELL. EXPLAINED MEDICATION AND HR CONCERN; PATIENT STATED "WHATEVER YOU SAY". LIGHTS DIMMED. CALL LIGHT IN REACH. BED ALARM ACTIVE.
[2024-12-16] VITALS (9 sets, daily range): BP systolic 99–122; BP diastolic 50–79
--- NOTE | 2024-12-16 00:45 | NUR ---
PATIENT APPEARS RESTFUL IN BED. EYES CLOSED. VS STABLE. HR 110-120'S AFIB CALL LIGHT IN REACH. BED ALARM ACTIVE.
--- NOTE | 2024-12-16 02:30 | NUR ---
PATIENT WOKE WHEN RN IN ROOM. REPORTS SLEEPING OFF AND ON BUT NOT BEING THAT TIRED. DENIED ANY NEEDS. VS STABLE. TOLERATING 4L NC. CALL LIGHT IN REACH. BED ALARM ACTIVE.
--- NOTE | 2024-12-16 04:00 | NUR ---
PATIENT WATCHING TV, RESTING IN BED. ORIENTED TO SELF AND SURROUNDINGS. PATIENT IS CALM AND APPROPRIATE. DENIED PAIN OR SOB. TOLERATING 3L NC. VS STABLE. PATIENT DENIED FURTHER NEEDS. CALL LIGHT IN REACH.
[2024-12-16 05:18] LABS: BASOPHILS 0.1 % (0.2-1.2); EOSINOPHILS 0 % (0.8-7.0); LYMPHOCYTES 3.5 % (21.8-53.1); MCH 33.1 PG (25.7-32.2); MCHC 35.0 g/dL (32.3-36.5); MCV 94.5 fL (79.0-92.2); MONOCYTES 5.0 % (5.3-12.2); NEUTROPHILS 91.0 % (34.0-67.9); RBC 3.84 M/uL (4.63-6.08)
[2024-12-16 05:31] LABS: ALT (SGPT) 79.0 U/L (14-59); AST (SGOT) 20.0 U/L (15-37); GLOMERULAR FILTRATION RATE,EST 61.0 mL/min (>60); PROTEIN, TOTAL 6.3 g/dL (6.4-8.2); UREA NITROGEN 34.0 mg/dL (7-18)
--- NOTE | 2024-12-16 06:21 | NUR ---
PATIENT SITTING UP IN BED WATCHING TV. PATIENT AAOX3. REQUESTING COFFEE. MALE EXTERNAL CATH REMOVED. AREA CLEANED. URNAL PROVIDED. PATIENT HAD 550 MLS OUT FOR THE SHIFT; CLEAR FEMI COLORED URINE. VS STABLE. HR 110-120 AFIB. ADEQUATE BP. PATIENT DENIED OTHER NEEDS. CALL LIGHT IN REACH. BED ALARM ACTIVE.
--- NOTE | 2024-12-16 07:30 | NUR ---
REPORT RECEIVED FROM MICHAEL MCCLURE. PT RESTING IN BED, AWAKE AND WATCHING TV, RESP EVEN AND UNLABORED, ON ROOM AIR WITH SPO2 91%.
--- NOTE | 2024-12-16 08:15 | NUR ---
IN TO DO AM ASSESSMENT AND MEDS. PT ALERT AND ORIENTED, ANSWERING QUESTIONS CORRECTLY THIS AM, IN AT BEDSIDE. PT IS EAGER TO GO HOME THIS AM, DISCUSSED PLAN OF CARE FOR THE DAY, INCLUDING GIVING CARDIAC MEDS AND CONTINUING TO WATCH HR. RESTING HR NOW 120'S AFIB. PT DOES REPORT FEELING A LITTLE MORE SOB THAN HIS BASELINE, AND DOES HAVE SOME INCREASED SOB WITH SITTING FORWARD IN BED FOR ASSESSMENT. LUNGS ARE DIM THROUGHOUT, WITH SCATTERED COARSE SOUNDS AND EX WHEEZE ON LEFT SIDE. PT DOES NOT WANT TO EAT BREAKFAST THIS MORNING, COFFEE PROVIDED.
[2024-12-16] MEDS ORDERED: predniSONE 20 MG TAB PO SCH (09:00)
[2024-12-16] MEDS ORDERED: POTASSIUM CHLORIDE 40 MEQ,LIDOCAINE HCL 1% 40 MG in DEXTROSE 5% 250 ML IV ONE (09:00)
[2024-12-16] MEDS ORDERED: DIGOXIN 125 MCG TAB PO SCH (09:00)
--- NOTE | 2024-12-16 09:05 | NUR ---
IN TO HANG POTASSIUM RIDER, NO NEEDS AT THIS TIME.
--- NOTE | 2024-12-16 09:49 | NUR ---
PATIENT WALKED WITH PT AND RT THIS AM. DURING WALK SpO2 LOWEST WAS 90%. RT TO CONTINUE TO MONITOR.
--- NOTE | 2024-12-16 09:59 | NUR ---
PT UP TO WALK WITH PHYSICAL THERAPY AND RT FOR ROOM AIR TRIAL.
--- NOTE | 2024-12-16 10:05 | NUR ---
PT NOW RESTING IN BED WATCHING TV, LEAVING. STATES HE WILL SIT UP IN CHAIR A LITTLE LATER, HR THIS MORNING HAS BEEN HIGH 140, MOSTLY IN THE 120'S. NOW RESTING HR IS 115-120. CALL LIGHT IN REACH.
[2024-12-16] MEDS ORDERED: METOPROLOL TARTRATE 25 MG TAB PO SCH (11:45)
[2024-12-16] MEDS ORDERED: FUROSEMIDE 40 MG TAB PO SCH (11:46)
--- NOTE | 2024-12-16 12:33 | NUR ---
LUNCH BROUGHT IN TO PT, ASSESSMENT DONE, PT DENEIS NEEDS AT THIS TIME.
--- NOTE | 2024-12-16 13:30 | NUR ---
PT RESTING IN BED, MULTIPLE FAMILY MEMBERS AT BEDSIDE. URINAL EMPTIED AND PLACED BACK NEXT TO PT. LUNCH TRAY CLEARED FROM ROOM, ATE 80%. CALL LIGHT IN REACH OF PT
--- NOTE | 2024-12-16 15:12 | NUR ---
PT AWAKE IN BED, RESTING HR 105-120'S. TALKING WITH VISITORS IN ROOM.
--- NOTE | 2024-12-16 17:30 | NUR ---
DINNER BROUGHT IN TO PT, HE HAS NO REQEUSTS AT THIS TIME.
--- NOTE | 2024-12-16 18:40 | NUR ---
PT AWAKE IN BED WATCHING TV, DENIES NEEDS, WASHING HIMSELF UP.
--- NOTE | 2024-12-16 19:30 | NUR ---
SHIFT REPORT RECEIVED. PATIENT RESTING IN BED WATCHING TV. DENIED ANY NEEDS. TOLERATING ROOM AIR. HR 110-120'S. CALL LIGHT IN REACH.
--- NOTE | 2024-12-16 20:30 | NUR ---
PATIENT UP TO THE BATHROOM. STAND BY ASSIST. PATIENT VOIDED AND RETURNED TO BED. APPEARS TO HAVE INCREASED WOB WITH ACTIVITY BUT DENIES FEELING SOB. Sp02 > 88% ON ROOM AIR. HR 120-130'S WITH ACTIVITY. PATIENT PROVIDED FRESH ICE WATER. CALL LIGHT IN REACH. BED ALARM ON.
--- NOTE | 2024-12-16 21:00 | NUR ---
PATIENT PROVIDED SCHEDULED MEDS PER ORDER. PATIENT READY FOR BED AND WILLING TO WEAR CPAP FOR NOW. VERIFIED PATIENT WAS ABLE TO REMOVE MASK INDEPENDENTLY THROUGHOUT TEACH BACK METHOD. PATIENT HAS UNDERSTANDING. LIGHTS DIMMED. CALL LIGHT IN REACH.
--- NOTE | 2024-12-16 22:00 | NUR ---
PATIENT UNABLE TO TOLERATE MASK. RT ATTEMPTED TO ADJUST TO INPROVE ABLITIY TO USE CPAP FOR THE NIGHT. PATIENT ATTEMPTED TO WEAR IT FOR 5-10 MINS AND THEN WAS DONE. PATIENT NOW ON ROOM AIR. CALL LIGHT IN REACH.
[2024-12-17] VITALS: BP 117/80
--- NOTE | 2024-12-17 00:33 | NUR ---
PATIENT PROVIDED SCHEDULED MEDS. PATIENT REPORTS NOT BEING VERY TIRED BUT HAS BEEN NAPPING OFF AND ON. TOLERATING ROOM AIR. HR CONTINUES TO BE 110-120'S AFIB. PATIENT DENIED ANY NEEDS OR CONCERNS. CALL LIGHT IN REACH.
--- NOTE | 2024-12-17 01:45 | NUR ---
PATIENT RESTING IN BED TRYING TO SLEEP. URNAL EMPTIED. PATIENT DENIED ANY NEEDS OR CONCERNS.
--- NOTE | 2024-12-17 04:14 | NUR ---
PATIENT RESTING IN BED WATCHING TV. DENIES ANY PAIN OR SOB. TOLERATING ROOM AIR. HR 100-120; AFIB. PATIENT DENIED ANY NEEDS. CALL LIGHT IN REACH.
[2024-12-17 05:22] LABS: BASOPHILS 0.1 % (0.2-1.2); EOSINOPHILS 0 % (0.8-7.0); LYMPHOCYTES 4.2 % (21.8-53.1); MCH 33.1 PG (25.7-32.2); MCHC 34.4 g/dL (32.3-36.5); MCV 96.2 fL (79.0-92.2); MONOCYTES 6.0 % (5.3-12.2); NEUTROPHILS 89.2 % (34.0-67.9); RBC 3.99 M/uL (4.63-6.08)
[2024-12-17 05:37] LABS: ALT (SGPT) 77.0 U/L (14-59); AST (SGOT) 24.0 U/L (15-37); GLOMERULAR FILTRATION RATE,EST 67.0 mL/min (>60); PROTEIN, TOTAL 6.4 g/dL (6.4-8.2); UREA NITROGEN 31.0 mg/dL (7-18)
[2024-12-17 06:00] VITALS: BP 114/78
--- NOTE | 2024-12-17 06:00 | NUR ---
SCHEDULED MEDS PROVIDED PER ORDER. PATIENT IS UP IN THE RECLINER HAVING COFFEE AND WATCHING TV. PATIENT INSTRUCTED NOT TO STAND FROM CHAIR OR AMBULATE WITHOUT CALLING. CALL LIGHT IN HAND. PATIENT VERBALIZED UNDERSTANDING. URNAL IN REACH.
--- NOTE | 2024-12-17 08:00 | NUR ---
REPORT RECEIVED FROM KAMI RODRIGUEZ. PT SITTING UP IN CHAIR, ARRIVED IN ROOM. STATES SHE SLEPT OK LAST NIGHT.
--- NOTE | 2024-12-17 10:11 | NUR ---
PLANS TO RETURN HOME WHEN MEDICALLY READY. NO KNOWN CM NEEDS.
[2024-12-17 10:27] VITALS: BP 123/80
--- NOTE | 2024-12-17 10:33 | NUR ---
PT SITTING UPRIGHT IN BED TALKING WITH . DENIES CONCERNS. ATE MOST OF BREAKFAST. GIVEN NEW URINAL. ANSWERED QUESTIONS REGARDING CARDIOVERSION. OT IN TO WORK WITH PT.
[2024-12-17 12:18] VITALS: BP 103/78
--- NOTE | 2024-12-17 12:22 | NUR ---
VISITED DURING SPIRITUAL CARE ROUNDS. PT SUPPORTED BY IN ROOM. BOTH IN OVERALL GOOD SPIRITS, NO IMMEDIATE NEEDS. TYPE COPYIST PROVIDED SUPPROTIVE PRESENCE, HOSPITALITY, PRAYER, FACILITATED INTERACTION WITH THERAPY ANIMAL. PT AND EXPRESSED GRATITUDE.
--- NOTE | 2024-12-17 13:01 | NUR ---
PT HAS VISITORS IN ROOM. CHATTING LOUDLY. HR REMAINS IN THE 120'S. COUGHING HAS SUBSIDED HOWEVER.
[2024-12-17] MEDS ORDERED: METOPROLOL TARTRATE 25 MG TAB PO ONE (13:30)
[2024-12-17] MEDS ORDERED: FUROSEMIDE 40 MG/4 ML VIAL IV SCH (14:00)
--- NOTE | 2024-12-17 14:59 | NUR ---
SPOKE WITH PT REGARDING PLAN TO ADJUST HIS MEDS AGAIN. ANSWERED QUESTIONS OF HIS AND WIFES. HE STATES HE HOPES TO GO HOME TOMORROW. FAMILY IN ROOM. URINAL IN REACH.
--- NOTE | 2024-12-17 16:12 | NUR ---
PT GETTING REPEAT ECHO.
--- NOTE | 2024-12-17 16:55 | NUR ---
PT GIVEN DINNER TRAY. EMPTIED URINAL FOR 1000ML LIGHT YELLOW URINE.
[2024-12-17] MEDS ORDERED: METOPROLOL TARTRATE 25 MG TAB PO SCH ×2 (17:45→19:30)
--- NOTE | 2024-12-17 19:22 | NUR ---
SPOKE WITH TELEPHARM SEVERAL TIMES REGARDING TITRATING DOSE OF METOPROLOL. SHOULD BE 37.5 NOW. THEN 6 HOURS FROM NOW 50MG.
--- NOTE | 2024-12-17 19:30 | NUR ---
handoff report received from KAMI newton. patient resting in bed watching TV. no acute distress noted. patient has call light in reach.
[2024-12-17 20:00] VITALS: BP 118/78
--- NOTE | 2024-12-17 21:00 | NUR ---
PATIENT AWAKENS FOR MEDICATION ADMINISTRATION. PATIENT CONFUSED, UNABLE TO STATE THE YEAR AND MONTH, LOCATION, AND SITUATION. PATIENT ONLY ORIENTED TO SELF. DR RIDLEY AT BEDSIDE TO ASSESS. PATIENT REMAINS IN AFIB, HEART RATE RANGING FROM 100-130'S. PATIENT ON ROOM AIR, TOLERATING WELL. BP STABLE. PATIENT DENIES ANY PAIN OR NAUSEA. PATIENT DENIES ANY NUMBNESS OR TINGLING. PATIENT ABLE TO FOLLOW COMMANDS. THIS RN REMAINS IN ROOM.
--- NOTE | 2024-12-17 21:40 | NUR ---
PATIENT LEFT UNIT WITH THIS RN AND RT FOR HEAD CT.
--- NOTE | 2024-12-17 21:56 | NUR ---
PATIENT BACK ON UNIT FROM CT. PATIENT TOLERATED WELL. NEW CHUCKS PAD AND BRIEF PLACE ON PATIENT. PATIENT ABLE TO TURN SELF IN BED. PATIENT REQUEST TV ON. THIS RN REMAINS AT BEDSIDE.
[2024-12-17 22:00] VITALS: BP 119/80
[2024-12-17] MEDS ORDERED: SENNOSIDES/DOCUSATE 1 EA TAB PO SCH (22:00)
--- NOTE | 2024-12-17 22:35 | NUR ---
PATIENT STATES HIS STOMACH FEELS MORE DISTENED THAN NORMAL. PATIENT ABD FIRM. PATIENT BT ACTIVE. MD AWARE. BOWL REGIMEN STARTED.
--- NOTE | 2024-12-17 23:15 | NUR ---
PATIENT REFUSES TO WEAR BIPAP AT THIS TIME. PATIENT LIGHTS DIMMED PER REQUEST. BED ALARM ON FOR PATIENT SAFETY, PATIENT REMAINS ON ROOM AIR, SPO2 94%. PATIENT REMAINS IN AFIB, HEART RATE RANGING FROM 110-130'S. PATIENT HAS CALL LIGHT IN REACH. BED IN LOW AND LOCKED POSITION.
[2024-12-18] VITALS (7 sets, daily range): BP systolic 96–119; BP diastolic 68–81
--- NOTE | 2024-12-18 01:08 | NUR ---
PATIENT RESTING IN BED WITH EYES CLOSED, RR 15. PATIENT REMAINS ON ROOM AIR, SPO2 91%. NO SIGNS OF ACUTE DISTRESS NOTED. PATIENT BED IN LOW AND LOCKED POSITION, BED ALARM ON. PATIENT HAS CALL LIGHT IN REACH.
--- NOTE | 2024-12-18 01:29 | NUR ---
PATIENT NOTED TO BE GETTING OUT OF BED. PATIENT STATES HE NEEDS TO STAND UP. PATIENT OUT OF BED, TAKES SOME STEPS WITH FWW. PATIENT REMAINS CONFUSED. PATIENT BACK TO BED. DENIES ANY FURTHER NEEDS AT THIS TIME. PATIENT REPOSITIONED. BED IN LOW AND LCOKED POSITION WITH BED ALARM ON. CALL LIGHT IN REACH.
[2024-12-18] MEDS ORDERED: METOPROLOL TARTRATE 50 MG TAB PO SCH (02:00)
--- NOTE | 2024-12-18 02:21 | NUR ---
PATIENTS SCHEDULED MEDICATION GIVEN PER ORDER. PATIENT DENIES ANY NEEDS. CALL LIGHT IN REACH. BED ALARM ON FOR SAFETY.
--- NOTE | 2024-12-18 04:15 | NUR ---
patient noted to desat as low as 86% on room air while asleep. patient placed on 2L oxymask, SPO2 93%. no further needs at this time. call light in reach.
[2024-12-18 05:26] LABS: BASOPHILS 0.2 % (0.2-1.2); EOSINOPHILS 0 % (0.8-7.0); LYMPHOCYTES 7.9 % (21.8-53.1); MCH 33.6 PG (25.7-32.2); MCHC 35.1 g/dL (32.3-36.5); MCV 95.7 fL (79.0-92.2); MONOCYTES 8.5 % (5.3-12.2); NEUTROPHILS 82.9 % (34.0-67.9); RBC 3.93 M/uL (4.63-6.08)
[2024-12-18 05:45] LABS: ALT (SGPT) 100.0 U/L (14-59); AST (SGOT) 38.0 U/L (15-37); GLOMERULAR FILTRATION RATE,EST 69.0 mL/min (>60); PROTEIN, TOTAL 6.0 g/dL (6.4-8.2); UREA NITROGEN 30.0 mg/dL (7-18)
--- NOTE | 2024-12-18 05:45 | NUR ---
patient request to get up to chair. patient ambulates to chair with fww and tolerates well. patient more clear this AM, although confused on where he is. patient seems to be irritated with being in hospital and is eager to get home. RT in room talking with patient. patient on room air, SPO2 94%. patient remains in AFIB, heart rate ranging from 110-130s. chair alarm on, patient has call light in reach and instructed to call this RN with any needs.
--- NOTE | 2024-12-18 06:45 | NUR ---
DR RIDLEY CALLED AND PROVIDED UPDATE ON PATIENT. NO NEW ORDERS AT THIS TIME.
[2024-12-18] MEDS ORDERED: METOPROLOL TARTRATE 100 MG TAB PO SCH (08:00)
[2024-12-18] MEDS ORDERED: METOPROLOL TARTRATE 100 MG TAB PO ONE (08:00)
[2024-12-18] MEDS ORDERED: METOPROLOL SUCCINATE 100 MG TABCR PO SCH (08:00)
[2024-12-18] MEDS ORDERED: POLYETHYLENE GLYCOL 3350 1 PACKET PO SCH (09:00)
--- NOTE | 2024-12-18 09:01 | NUR ---
DR. RIDLEY IN ROOM TO SEE PATIENT AT THIS TIME AND DISCUSSING PLAN OF CARE. PATIENT AGREEABLE TO TRANSFER FOR POTENTIAL CARDIOVERSION. PT IS CLEAR, A&o X4. ALL PO MEDS GIVEN THIS AM W/O DIFFICULTY. PT REPORTS FEELING WORSE THAN WHEN HE CAME IN, AND NOTICES MORE SWELLING IN HIS LEGS. PT ON ROOM AIR CURRENTLY. PT'S FREDRICK IN ROOM AND ALSO UP TO DATE ON PLAN OF CARE. PT REMAINS IN THE 130s AFIB WHILE THIS RN IN ROOM. WILL CONTINUE TO MONITOR.
--- NOTE | 2024-12-18 10:15 | NUR ---
Spoke with Joe and his . They are waiting for an accepting hospital for a cardioversion. They deny any needs.
--- NOTE | 2024-12-18 12:32 | NUR ---
PATIENT TRANSFERRED TO [facility] ROOM 7121 AT 1155 VIA EMS/[facility]. NEW IV ESTABLISHED BY EMS DUE TO PATIENT ACCIDENTALLY PULLING HIS IV SITE WHEN MOVING TO STRETCHER. PT REMAINS IN AFIB 130-140s BUT STABLE. REPORT CALLED TO KAMI GODOY AT [facility] AT [phone]. ALL PERSONAL BELONGINGS SENT WITH PATIENT AND PATIENT'S TO FIND HER OWN TRANSPORTATION TO [facility].
[2024-12-18] MEDS ORDERED: METOPROLOL TARTRATE 25 MG TAB PO SCH ×2 (19:00)
== END 2024-12-18 11:55 | disposition short-term general hospital (02) | DRG 175 ==
LOC: ED 23:40 → CCU 12-12 02:10
PROVIDERS: Family Medicine; ADMIT Internal Medicine; ATTEND Family Medicine
PROC: 5A09357 Assistance with Respiratory Ventilation, Less than 24 Consecutive Hours, Continuous Positive Airway Pressure (ICD-10-PCS; principal; 2024-12-14)
PROC: 4A133R1 Monitoring of Arterial Saturation, Peripheral, Percutaneous Approach (ICD-10-PCS; 2024-12-14)
DX: I26.99 Other pulmonary embolism without acute cor pulmonale (principal); J96.01 Acute respiratory failure with hypoxia; J81.1 Chronic pulmonary edema; I48.91 Unspecified atrial fibrillation; I10 Essential (primary) hypertension; H40.9 Unspecified glaucoma; N40.1 Benign prostatic hyperplasia with lower urinary tract symptoms; F17.200 Nicotine dependence, unspecified, uncomplicated; I95.9 Hypotension, unspecified; E87.70 Fluid overload, unspecified; R33.8 Other retention of urine; R41.0 Disorientation, unspecified; T46.2X5A Adverse effect of other antidysrhythmic drugs, initial encounter; Z85.828 Personal history of other malignant neoplasm of skin; Z85.51 Personal history of malignant neoplasm of bladder
CPT/HCPCS: 36415; 36600; 70450; 70496; 70498; 70551; 71045; 71260; 80053; 80162; 82803; 83735; 83880; 84484; 85025; 85379; 85610; 85730; 93005; 93010; 93306; 93308; 94640; 94660; 94667; 94668; 94761; 94799; 96374; 96375; 97116; 97162; 97165; 97530; 99285-25; J0282; J0612; J1160; J1938; J2060; J2270; J2405; J2919; J3475; J3480; J3490; J7040; J7060; J7121; J7512; P9612; Q9967

== ENCOUNTER 2025-01-05 08:53 | Emergency (ER) | payer MEDICARE, BC ==
[~2025-01-05] VITALS: Ht 177.8 cm; Wt 106.0 kg
--- OUTSIDE RECORDS SUMMARY | 2025-01-05 08:59 | XMS ---
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 - 2 Visits in 30 Days CARE PROVIDERS There are no care providers on record at this time. Ricki has no Care Guidelines for this patient. [facility] VISIT COUNT (12 MO.) [address] [facility] TOTAL 3 NOTE: Visits indicate total known visits. ED/[facility] VISIT TRACKING (12 MO.) 01/05/2025 08:53 [facility] [place] TYPE: Emergency COMPLAINT: - HEART ISSUES 12/11/2024 23:42 [facility] [place] TYPE: Emergency COMPLAINT: - SHORTNESS OF BREATH 11/04/2024 13:59 [facility] [place] TYPE: Emergency COMPLAINT: - RT SIDE FLANK PAIN DIAGNOSES: - Hydronephrosis with renal and ureteral calculous obstruction - Nicotine dependence, unspecified, uncomplicated - Other residential (current) drug therapy - Personal history of urinary calculi - Unspecified abdominal pain INPATIENT VISIT TRACKING (12 MO.) 12/18/2024 13:28 [facility] TYPE: Internal Medicine DIAGNOSES: - Other persistent atrial fibrillation - Pulmonary embolism - Refractory atrial fibrillation RVR 12/12/2024 02:10 [facility] [place] TYPE: Critical Care COMPLAINT: - PULMONARY EMBOLUS,AFIB WITH RVR DIAGNOSES: - Acute respiratory failure with hypoxia - Adverse effect of other antidysrhythmic drugs, initial encounter - Benign prostatic hyperplasia with lower urinary tract symptoms - Chronic pulmonary edema - Disorientation, unspecified - Essential (primary) hypertension - Fluid overload, unspecified - Hypotension, unspecified - Nicotine dependence, unspecified, uncomplicated - Other pulmonary embolism without acute cor pulmonale - Other retention of urine - Personal history of malignant neoplasm of bladder - Personal history of other malignant neoplasm of skin - Shortness of breath - Unspecified atrial fibrillation - Unspecified glaucoma [email or web address]
[2025-01-05 09:12] LABS: BASOPHILS 0.6 % (0.2-1.2); EOSINOPHILS 2.7 % (0.8-7.0); LYMPHOCYTES 18.1 % (21.8-53.1); MCH 33.3 PG (25.7-32.2); MCHC 33.3 g/dL (32.3-36.5); MCV 100.2 fL (79.0-92.2); MONOCYTES 11.2 % (5.3-12.2); NEUTROPHILS 66.9 % (34.0-67.9); RBC 4.56 M/uL (4.63-6.08)
[2025-01-05] MEDS ORDERED: ALBUTEROL/IPRATROPIUM 3 ML NEB INH PRN (09:15)
[2025-01-05] MEDS ORDERED: DIGOXIN125 MCG PO (09:21)
[2025-01-05] MEDS ORDERED: DILTIAZEM 24HR240 M1 PO (09:21)
[2025-01-05] MEDS ORDERED: ELIQUIS5 MG PO (09:21)
[2025-01-05] MEDS ORDERED: FUROSEMIDE 100 MG/10 ML VIAL IV ONE (09:30)
[2025-01-05 09:33] LABS: ALT (SGPT) 137.0 U/L (14-59); AST (SGOT) 31.0 U/L (15-37); GLOMERULAR FILTRATION RATE,EST 66.0 mL/min (>60); PROTEIN, TOTAL 6.5 g/dL (6.4-8.2); UREA NITROGEN 26.0 mg/dL (7-18)
[2025-01-05] MEDS ORDERED: METOPROLOL SUC100 MG PO (12:44)
[2025-01-05 13:21] VITALS: BP 108/80
--- NOTE | 2025-01-07 13:13 | EKG ---
[facility] [address] [facility] [place] [address] Signed Atrial fibrillation with rapid ventricular response Low voltage QRS Incomplete right bundle branch block ST \T\ T wave abnormality, consider anterior ischemia Abnormal ECG When compared with ECG of 05-JAN-2025 09:02, (Unconfirmed) No significant change was found Confirmed by David Kwong DO ([id number]) on 01/07/2025 1:13:21 PM Electronically Signed By: DAVID KWONG DO 01/07/25 1313 PATIENT NAME: ROBERTO CARLOS AGRAWAL DEJUAN Electrocardiogram DATE OF : 48 PHYSICIAN: DAVID KWONG DO REPORT #: [id number] REPORT IS CONFIDENTIAL AND NOT TO BE RELEASED WITHOUT AUTHORIZATION
--- NOTE | 2025-01-07 13:13 | EKG ---
[facility] [address] [facility] [place] [address] Signed Atrial fibrillation with rapid ventricular response Low voltage QRS Incomplete right bundle branch block ST \T\ T wave abnormality, consider anterior ischemia Abnormal ECG When compared with ECG of 13-DEC-2024 22:36, No significant change was found Confirmed by David Kwong DO ([id number]) on 01/07/2025 1:13:14 PM Electronically Signed By: DAVID KWONG DO 01/07/25 1313 PATIENT NAME: ROBERTO CARLOS AGRAWAL DEJUAN Electrocardiogram DATE OF : 48 PHYSICIAN: DAVID KWONG DO REPORT #: [id number] REPORT IS CONFIDENTIAL AND NOT TO BE RELEASED WITHOUT AUTHORIZATION
== END 2025-01-05 13:20 | disposition short-term general hospital (02) ==
LOC: ED 08:53
PROVIDERS: Emergency Medicine
DX: I48.91 Unspecified atrial fibrillation (principal); I11.0 Hypertensive heart disease with heart failure; I50.9 Heart failure, unspecified; Z86.711 Personal history of pulmonary embolism; F17.200 Nicotine dependence, unspecified, uncomplicated; Z79.01 Long term (current) use of anticoagulants; Z79.899 Other long term (current) drug therapy
CPT/HCPCS: 36415; 71045; 80053; 83735; 83880; 84484; 85025; 93005; 93010; 96374; 99285-25; J1938